=== PATIENT | male | born 1965 | race Caucasian/White ===

== ENCOUNTER 2016-09-26 18:02 | Emergency (ER) | payer OTHER ==
[2016-09-26 18:13] VITALS: BP 149/92; PULSE 66; TEMP 98; BMI 28.6
[2016-09-26] MEDS ORDERED: DIPHTH,PERTUSS(ACELL),TET 0.5 ML DISP.SYRIN IM ONE (18:56)
--- NOTE | 2016-09-26 19:01 | PDOC ---
History of Present Illness - General Chief Complaint: Bite Stated Complaint: BITE, LEG SWELLING Time Seen by Provider: 09/26/16 18:17 - History of Present Illness Initial Comments: 09/26/16 18:55 CHIEF COMPLAINT: spider bite HISTORY OF PRESENT ILLNESS: 51 yo M with no PMH presents to [facility] with spider bite. Patient states he was bitten 2 days ago and saw a "little black spider" after the bite. Patient denies any fever, vomiting, diarrhea, or pain to the area. PAST MEDICAL HISTORY: Denies past medical history FAMILY HISTORY: Denies SOCIAL HISTORY:Denies tobacco, alcohol, illicit drug use. SURGICAL HISTORY: Denies ALLERGIES: No known drug allergies REVIEW OF SYSTEMS General/Constitutional: Denies fever or chills. Denies weakness. Cardiovascular: Denies chest pain or shortness of breath. Gastrointestinal: Denies nausea, vomiting, diarrhea. Musculoskeletal: Denies joint or muscle swelling or pain. Denies neck or back pain. Skin: "I got a spider bite 2 days ago." Neurologic: Denies headache, vertigo, loss of consciousness, or loss of sensation. PHYSICAL EXAM General Appearance: Well-appearing, appropriately dressed. No apparent distress. HEENT: EOMI, PERRLA. Respiratory/Chest: Lungs CTAB. Cardiovascular: RRR. S1, S2. Musculoskeletal/Extremities: 2 erythematous, well demarcated lesions approximately 2cm x 2cm to R hip. Normal inspection. FROM of all extremities, normal capillary refill. Pelvis Stable. No CVA tenderness. No tenderness to extremities, pedal edema, swelling, erythema or deformity. Integumentary: Appropriate color, dry, warm. No cyanosis, erythema, jaundice or rash Neurologic: electrical system specialist II-XII intact. Fully oriented, alert. Appropriate mood/affect. Motor strength 5/5. No appreciable EOM palsy, facial droop or sensory deficit. Past History - Past Medical History Allergies/Adverse Reactions: Allergies Allergy/AdvReac Type Severity Reaction Status Date / Time No Known Allergies Allergy Verified 09/26/16 18:08 Home Medications: Ambulatory Orders Fluticasone Propionate [Flonase Allergy Relief] 9.9 ml NS DAILY #30 spray.susp 10/19/14 Lidocaine 5% Patch [Lidoderm -] 1 patch TP DAILY #7 patch 10/19/14 Oxycodone HCl/Acetaminophen [Percocet 5/325 -] 1 tab PO Q6H PRN #10 tablet 10/19 Sulfamethoxazole/Trimethoprim [Bactrim DS -] 1 tab PO BID #14 tablet 09/26/16 - Psycho/Social/Smoking Cessation Hx Anxiety: No Suicidal Ideation: No Smoking History: Never smoked Information on smoking cessation initiated: No Hx Alcohol Use: Yes (OCCSIONALLY) Drug/Substance Use Hx: No Substance Use Type: None *Physical Exam - Vital Signs Last Vital Signs Temp Pulse Resp BP Pulse Ox 98 F 66 18 149/92 99 09/26/16 18:04 09/26/16 18:04 09/26/16 18:04 09/26/16 18:04 09/26/16 18:04 Medical Decision Making - Medical Decision Making 09/26/16 19:06 51 yo M with no PMH presents to [facility] with spider bite. Patient unsure when last Tdap was. -Tdap IM -Bactrim rx sent to pharm. Advised patient to take medications as prescribed and of signs and symptoms for return to ER; patient verbalized understanding and agrees to plan. *DC/Admit/Observation/Transfer Diagnosis at time of Disposition: Spider bite Qualifiers: Encounter type: initial encounter Injury intent: undetermined intent Qualified Code(s): T63.304A - Toxic effect of unspecified spider venom, undetermined, initial encounter - Discharge Dispostion Disposition: HOME Condition at time of disposition: Stable Admit: No - Prescriptions Prescriptions: Sulfamethoxazole/Trimethoprim [Bactrim DS -] 1 tab PO BID #14 tablet - Referrals Referrals: Dallin Kaba MD [Primary Care Provider] - - Patient Instructions Printed Discharge Instructions: DI for Insect Bites and Stings Additional Instructions: Please take medication as prescribed. Follow up with your primary care doctor if symptoms persist past one week. If you develop increased swelling, redness, or warmth in the area of the bite, worsening pain, or you develop any fever, vomiting, or diarrhea, please return to the ER.
== END 2016-09-26 19:38 | disposition home or self-care (01) ==
LOC: JER 18:02 → JERFT 18:02
PROC: 3E0234Z Introduction of Serum, Toxoid and Vaccine into Muscle, Percutaneous Approach (ICD-10-PCS; principal; 2016-09-26)
DX: T63.301A Toxic effect of unspecified spider venom, accidental (unintentional), initial encounter (principal); L53.0 Toxic erythema; Y92.032 Bedroom in apartment as the place of occurrence of the external cause
CPT/HCPCS: 90471; 90715; 99281-25